=== PATIENT | male | born 1975 | race American Indian/Alaskan Native ===

== ENCOUNTER 2018-05-13 05:06 | Emergency (ER) | payer BC, OTHER ==
[2018-05-13 05:25] VITALS: BP 149/89
--- NOTE | 2018-05-13 06:37 | Emergency Department Report ---
ED Laceration HPI - HPI Chief Complaint: Wound/Laceration Stated Complaint: LT FOOT INJURY Occurred When: Before Yesterday Location: Lower Extremity Severity: mild Laceration Symptoms: Yes Pain, No Foreign Body Sensation, No Numbness, No Weakness Other History: Mr. Leung is a 42 yo male who cut his left ankle, foot on metal equipment in a warehouse 1 week ago. Wound has not healed. ED Review of Systems ROS: Stated complaint: LT FOOT INJURY Other details as noted in HPI Constitutional: denies: fever, malaise Skin: rash, lesions ED Past Medical Hx - Past Medical History Previous Medical History?: No - Surgical History Past Surgical History?: No - Social History Smoking Status: Never Smoker Substance Use Type: None - Medications Home Medications: Home Medications Medication Instructions Recorded Confirmed Last Taken Type cephALEXin [Keflex] 500 mg PO Q8HR 7 Days #21 cap 05/13/18 Unknown Rx Laceration Physical Exam - Exam General: Vital signs noted. No distress. Alert and acting appropriately. gaping 2 cm x 5 cm wound healing, no surrounding redness or purulence Wound Length (cm): 5 Laceration Location: Lower Extremity Laceration Exam: Yes Normal Distal CMS, No Foreign Body, No Exposed Tendon, Vessel, or Nerve, No Tendon Injury ED Course Vital Signs 05/13/18 05:16 Temperature 98 F Pulse Rate 101 H Respiratory 20 Rate Blood Pressure 149/89 O2 Sat by Pulse 98 Oximetry ED Medical Decision Making - Medical Decision Making Mr. Leung presents with delayed healing wound, suspect laceration which needed suture repair one week ago. Now wound is healing by secondary intention. Antibiotic keflex prescribed to hasten healing and prevent superinfection. Given wound care instructions. Critical care attestation.: If time is entered above; I have spent that time in minutes in the direct care of this critically ill patient, excluding procedure time. ED Disposition Clinical Impression: Delayed wound healing, Laceration of ankle, left Disposition: [id number] TO HOME OR SELFCARE Is pt being admited?: No Does the pt Need Aspirin: No Condition: Stable Instructions: Chronic Wound Care (ED) Prescriptions: cephALEXin [Keflex] 500 mg PO Q8HR 7 Days #21 cap Referrals: LENNY VILLALTA MD [Primary Care Provider] - 3-5 Days
== END 2018-05-13 06:48 | disposition home or self-care (01) ==
LOC: ED 05:06
DX: S91.012D Laceration without foreign body, left ankle, subsequent encounter (principal); X58.XXXD Exposure to other specified factors, subsequent encounter
CPT/HCPCS: 99282